=== PATIENT | female | born 1990 | race Two or more races ===

== ENCOUNTER 2021-11-02 06:16 | Day surgery (SDC) | payer SELFPAY ==
[2021-10-27 11:39] VITALS: BMI 30.1
[2021-11-02] MEDS ORDERED: PROPOFOL 20 ML ONE ×8 (07:09→11:05)
[2021-11-02] MEDS ORDERED: fentaNYL CITRATE 250 MCG/5 ML VIAL ONE (07:09)
[2021-11-02] MEDS ORDERED: SEVOFLURANE 250 ML BTL ONE (07:09)
[2021-11-02] MEDS ORDERED: MIDAZOLAM HCL 2 MG/2 ML SINGLE DOSE VIAL ONE (07:09)
[2021-11-02] MEDS ORDERED: ROCURONIUM BROMIDE 50 MG/5 ML SYRINGE ONE ×2 (07:11→08:28)
[2021-11-02] MEDS ORDERED: SUCCINYLCHOLINE CHLORIDE 200 MG/10 ML SYRINGE ONE (07:11)
[2021-11-02] MEDS ORDERED: DEXAMETHASONE SOD PHOSPHATE 4 MG/1 ML VIAL ONE ×2 (08:01→08:24)
[2021-11-02] MEDS ORDERED: ceFAZolin SODIUM 1 GM VIAL ONE ×3 (08:01→11:37)
[2021-11-02] MEDS ORDERED: KETOROLAC TROMETHAMINE 30 MG/1 ML VIAL ONE ×2 (08:01→08:24)
[2021-11-02] MEDS ORDERED: ONDANSETRON 4 MG/2 ML VIAL ONE ×3 (08:01→13:08)
[2021-11-02] MEDS ORDERED: LIDOCAINE HCL 2% JELLY (5 ML/TUBE) ONE (08:24)
[2021-11-02] MEDS ORDERED: HYDROmorphone HCL/PF 1 MG/ML VIAL ONE ×2 (08:29)
[2021-11-02] MEDS ORDERED: NEOSTIGMINE METHYLSULFATE 0.5 MG/1 ML - 10 ML MDV ONE (11:47)
[2021-11-02] MEDS ORDERED: GLYCOPYRROLATE 0.2 MG/1 ML VIAL ONE (11:47)
[2021-11-02] MEDS ORDERED: BACITRACIN 15 GM TUBE TOPICAL OINTMENT ONE (11:57)
[2021-11-02] MEDS ORDERED: ONDANSETRON 4 MG/2 ML VIAL IVPB PRN (12:20)
[2021-11-02] MEDS ORDERED: oxyCODONE HCL 5 MG TABLET PO PRN ×4 (12:20→12:21)
[2021-11-02] MEDS ORDERED: ONDANSETRON 4 MG/2 ML VIAL IVPUSH PRN (12:21)
[2021-11-02] MEDS ORDERED: PROMETHAZINE HCL 25 MG/1 ML VIAL IVPUSH PRN (12:21)
[2021-11-02] MEDS ORDERED: LACTATED RINGERS SOLUTION 1,000 ML IV SCH (12:30)
[2021-11-02] MEDS ORDERED: oxyCODONE HCL 5 MG TABLET ONE (14:00)
[2021-11-02 14:04] VITALS: TEMP 97.1
[2021-11-02 15:25] VITALS: BP 122/72; PULSE 96
== END 2021-11-02 15:15 | disposition home or self-care (01) ==
LOC: FASU 06:16
PROVIDERS: ATTEND Plastic Surgery
PROC: 0H0V0ZZ Alteration of Bilateral Breast, Open Approach (ICD-10-PCS; principal; 2021-11-02 08:21)
DX: N62 Hypertrophy of breast (principal)
CPT/HCPCS: 84703; 88305-TC; 94760